=== PATIENT | male | born 1970 | race Caucasian/White ===

== ENCOUNTER 2018-03-17 13:14 | Emergency (ER) | payer OTHER, SELFPAY ==
[2018-03-17 13:15] VITALS: BP 172/118; PULSE 86; RESP 17; O2SAT 100
[2018-03-17 13:16] VITALS: BP 172/118; PULSE 78; RESP 18; TEMP 36.7; O2SAT 100; BMI 28.8
--- NOTE | 2018-03-17 13:20 | EKG12_ITS ---
Test Reason : DIZZINESS Blood Pressure : / mmHG Vent. Rate : 072 BPM Atrial Rate : 072 BPM P-R Int : 168 ms QRS Dur : 092 ms QT Int : 396 ms P-R-T Axes : 038 020 030 degrees QTc Int : 433 ms Normal sinus rhythm Normal ECG Confirmed by LAYO FOSTER ([id number]), state editor JACKSON CONTRERAS ([id number] on 03/23/2018 2:41:38 PM Referred By: CLAUS Confirmed By:LAYO FOSTER
--- NOTE | 2018-03-17 13:24 | NURSING ---
NO OLD EKGS
[2018-03-17 13:31] LABS: Bedside Glucose 105 mg/dL (70-110)
--- NOTE | 2018-03-17 13:34 | ED.VISSUMM ---
- ER Visit Summary Date of Service: 03/17/18 Chief Complaint: Dizziness History of Present Illness: The patient is a 47 M patient presents to the emergency department dizziness and shaking. He states over the past 24 hours, he is just not felt well. States today, he describes dizziness like the sensation of motion. He states that he has been shaky and tremulous. He has had sore throat, cough, low-grade fevers. The patient does have a history of seizure disorder. He is unsure of the medication that he takes. He has not had a recent seizure. He also admits to alcohol abuse and drinks every day. He states that he did drink yesterday. Physical Examination: Vital signs reviewed General: Well-nourished, well-developed Head: Normocephalic, atraumatic Eyes: Pupils equal and reactive, extraocular muscles intact Neck, supple, no lymphadenopathy Heart: Regular rate and rhythm Respiratory: No distress, clear bilaterally Abdomen: Soft, nontender, nondistended, no peritoneal signs Back: Nontender Extremities: Nontender, no edema, no cords Skin: Normal color no rash Neuro: Alert and oriented, no focal or lateralizing deficits Test Results: [] Emergency Department Course and Treatment: [Patient presents with sore throat, fever, dizziness, and shaking. I do feel that this is primarily infectious. His posterior oropharynx is exudate bilaterally. His uvula is midline. There is no evidence of retropharyngeal or peritonsillar abscess. IV was established. Patient was given fluids and antiemetics. His rapid strep was positive. The rest of his screening labs are unremarkable. The patient was also treated with Decadron and oral antibiotics. On reevaluation he is markedly improved. He is resting comfortably. I do feel the patient is safe for outpatient therapy. He will be discharged with Decadron and Augmentin. He is comfortable with this plan of care. Treatment Plan: He was Disposition: Discharge Impression: 1. Strep pharyngitis This note was generated with [employer] dictation software. It may contain incorrect words, spelling, and punctuation that were not noted in review of the chart prior to signing ED Disposition - Plan for ED Patient: Chief Complaint: Dizziness Instructions: ED Strep Pharyngitis Conf Prescriptions: Amox/Clavulanate Tablet [Augmentin Tablet] 875 mg PO Q12H #20 tab Naproxen [Naprosyn] 500 mg PO BID PRN #20 tab Dexamethasone [Decadron] 4 mg PO BID #6 tab Referrals: [facility] Doctor,Out of [Primary Care Provider] -
--- NOTE | 2018-03-17 13:44 | ED.RN ---
PT POSITIVE FOR STREP A. DR RIZO
[2018-03-17 13:46] LABS: Absolute Lymphocyte Count 1.73 X10^3/ul (0.83-4.51); Absolute Neutrophil Count 3.6 X10^3/uL (2.0-7.7); Basophil# 0.01 X10^3/uL; Basophil% 0.2 % (0-1); Eosinophil# 0.06 X10^3/uL; Hemoglobin 17.1 g/dl (13.0-16.5); Lymphocyte # 1.73 X10^3/ul (4.0); Lymphocyte % 30.1 % (19-41); Mean Corp Hgb Conc 34.2 g/gl (32-36); Mean Corpuscular Hgb 31.1 pg (27.0-32.0); Mean Corpuscular Volume 90.9 fL (80-94); Mean Platelet Vol. 10.1 fl (6.2-12.0); Monocyte# 0.37 X10^3/uL; Monocyte% 6.4 % (0-10); Neutrophil # 3.56 X10^3/uL (2.7-7.7); Neutrophil % 62.1 % (47-70); Platelet Count 117 K/mm3 (150-450); RBC Distribution Width CV 13.2 % (11.6-14.6); RBC Distribution Width SD 43.7 fl (35.1-43.9); White Blood Count 5.7 K/mm3 (4.4-11.0)
[2018-03-17 13:47] LABS: POSITIVE COUNT NO; POSITIVE DIFFERENTIAL NO; POSITIVE MORPHOLOGY NO
[2018-03-17] MEDS: proMETHazine 25 MG/ML Syringe 6.25 MG IV (13:53)
[2018-03-17] MEDS: 0.9% Normal Saline 1,000 ML 1000 ML IV (13:53)
[2018-03-17] MEDS: LORazepam 2 MG/ML Syringe 1 MG IV (13:54)
[2018-03-17] MEDS: Ketorolac 15 MG/ML Vial IV (13:54)
[2018-03-17 13:57] LABS: ALB/GLOB Ratio 1.1 RATIO (0.9-2.4); AST(SGOT) 49 U/L (15-37); Alanine Aminotransfer ALT/SGPT 53 U/L (16-61); Albumin, Serum 4.2 g/dL (3.2-5.0); Alkaline Phosphatase 151 U/L (45-117); Anion Gap 10 (5-15); BUN 12 mg/dL (7-18); BUN/Creat Ratio 10.8 RATIO (10-20); Calcium,Total 8.7 mg/dL (8.5-10.1); Chloride 104 mmol/L (98-107); Creatinine, Serum 1.11 mg/dL (0.70-1.30); EST Glomerular Filtration Rate 75 mL/min (>60); Est Glom Filt Rate - Afr Amer 91 mL/min (>60); Estimated Creatinine Clearance 89.33 ml/min; Globulin 3.8 g/dL (2.2-4.2); Glucose 109 mg/dL (74-106); Potassium 3.8 mmol/L (3.5-5.1); Sodium Level 139 mmol/L (136-145)
[2018-03-17] MEDS: Amox/Clavulanate 875 MG Tablet PO (14:15)
[2018-03-17 14:17] VITALS: BP 147/110; PULSE 67; RESP 13; O2SAT 97
[2018-03-17 14:26] LABS: Carbamazepine (Tegretol) < 0.5 ug/mL (4.0-12.0); Phenytoin (Dilantin) Level < 0.4 mL (10.0-20.0)
[2018-03-17 15:03] VITALS: BP 168/109; PULSE 86; RESP 17; O2SAT 97
--- NOTE | 2018-03-17 15:04 | ED.RN ---
IV DC'ED, CATHETER INTACT, SMALL GAUZE DRESSING PLACED. DISCHARGE INSTRUCTIONS GIVEN TO AND REVIEWED WITH PATIENT, PATIENT DENIES QUESTIONS OR CONCERNS AND VOICES UNDERSTANDING OF DISCHARGE INSTRUCTIONS. PT AMBULATES OUT OF ROOM WITHOUT DIFFICULTY.
== END 2018-03-17 15:05 | disposition home or self-care (01) ==
PROVIDERS: Emergency Provider Emergency Medicine
DX: J02.0 Streptococcal pharyngitis (principal); R42 Dizziness and giddiness; F10.10 Alcohol abuse, uncomplicated; Y90.9 Presence of alcohol in blood, level not specified
CPT/HCPCS: 80053; 80156; 80185; 82962; 85025; 87804; 87880; 93005; 96361; 96374; 96375; 99285; J7030; A4216